=== PATIENT | female | born 1990 | race American Indian/Alaskan Native ===

== ENCOUNTER 2021-03-01 16:26 | Emergency (ER) | payer MEDICAID ==
[2021-03-01 17:33] VITALS: BP 105/68
--- NOTE | 2021-03-01 20:39 | Event Note ---
ED Screening Note Date of service: 03/01/21 Time: 20:32 ED Screening Note: Pt c/o abnormal menstrual cycle and lower abdominal pain x months left leg pain x 2 days Pt is a poor historian Recently discharged from [facility] This initial assessment/diagnostic orders/clinical plan/treatment(s) is/are subject to change based on patients health status, clinical progression and re- assessment by fellow clinical providers in the ED. Further treatment and workup at subsequent clinical providers discretion. Patient/guardian urged not to elope from the ED as their condition may be serious if not clinically assessed and managed. Initial orders include: US UA
[2021-03-02 00:58] LABS: Bilirubin,Urine NEG (Negative); Blood,Urine LG (Negative); Color,Urine Red (Yellow); RBC,Urine > 182.0 /HPF (0.0-6.0); Urobilinogen,Urine < 2.0 mg/dL (<2.0); WBC,Urine > 182.0 /HPF (0.0-6.0)
[2021-03-02 01:39] LABS: Basophils # (Auto) 0.2 K/mm3 (0.0-0.1); Basophils % (Auto) 2.3 % (0.0-1.8); Eosinophils # (Auto) 0.2 K/mm3 (0.0-0.4); Eosinophils % (Auto) 2.7 % (0.0-4.3); Hematocrit 25.9 % (30.3-42.9); Hemoglobin 7.7 gm/dl (10.1-14.3); Lymphocytes # (Auto) 2.6 K/mm3 (1.2-5.4); Mean Corpuscular HGB Conc 30 % (30-34); Monocytes # (Auto) 0.5 K/mm3 (0.0-0.8); Monocytes % (Auto) 7.6 % (0.0-7.3); Platelet Count 543 K/mm3 (140-440); Red Blood Count 4.04 M/mm3 (3.65-5.03)
[2021-03-02 01:45] LABS: Mean Corpuscular Volume 64 fl (79-97)
[2021-03-02 01:54] LABS: Alanine Aminotransferase 7 units/L (7-56); Albumin 4.7 g/dL (3.9-5); Blood Urea Nitrogen 10 mg/dL (7-17); Calcium 9.5 mg/dL (8.4-10.2); Hemolysis Index 0
[2021-03-02 02:01] LABS: BUN/Creatinine Ratio 17
--- NOTE | 2021-03-02 02:07 | Emergency Department Report ---
ED Female HPI - General Chief complaint: Urogenital-Female Stated complaint: ABD PAIN Time Seen by Provider: 03/01/21 20:32 Source: patient Mode of arrival: Ambulatory Limitations: No Limitations - History of Present Illness Initial comments: Patient is at A1 30-year-old -Turkish female with no past medical history who presents to the ED with acute onset persistent heavy vaginal bleeding and suprapubic pressure for the last 1 month. Patient states that she has previously been treated for the same heavy vaginal bleeding by her [employer] p dale with medroxyprogesterone tablets and which helped resolve the bleeding about 2 months ago after she had a miscarriage. 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 Patient denies fever, chills, dysuria, urinary frequency and urgency, dizziness, syncope, generalized weakness, nausea and vomiting, diarrhea, low back pain, chest pain or shortness of breath or headache. MD Complaint: vaginal bleeding, pelvic pain -: Sudden, month(s) (1) Location: suprapubic, other (Vaginal bleeding) Radiation: suprapubic Severity: moderate Severity scale (0 -10): 4 Quality: cramping, sharp Consistency: constant Improves with: none Worsens with: none Are you Now?: No Associated Symptoms: denies other symptoms, vaginal bleeding, abdominal pain (suprapubic pressure). denies: vaginal discharge, nausea/vomiting, f ever/chills, headaches, loss of appetite, dysuria, hematuria, rash, seizure, shortness of breath, syncope, weakness - Related Data Sexually active: Yes : 4 Para: 3 A: 1 Previous Rx's Medication Instructions Recorded Last Taken Type Ferrous Sulfate [Ferrous Sulfate 324 mg PO DAILY #60 tablet. 03/02/21 Unknown Rx 324 MG] Ibuprofen [Motrin] 600 mg PO Q8H PRN #30 tablet 03/02/21 Unknown Rx cephALEXin [Keflex] 500 mg PO Q8HR #30 cap 03/02/21 Unknown Rx medroxyPROGESTERone ACETATE 10 mg PO DAILY #10 tablet 03/02/21 Unknown Rx [Provera] Allergies Allergy/AdvReac Type Severity Reaction Status Date / Time No Known Allergies Allergy Unverified 03/01/21 17:30 ED Review of Systems ROS: Stated complaint: ABD PAIN Other details as noted in HPI Constitutional: denies: chills, fever Eyes: denies: eye pain, eye discharge, vision change ENT: denies: ear pain, throat pain Respiratory: denies: cough, shortness of breath, wheezing Cardiovascular: denies: chest pain, palpitations Endocrine: no symptoms reported Gastrointestinal: abdominal pain (Suprapubic pressure). denies: nausea, vomiting, diarrhea Genitourinary: hematuria, abnormal menses (Vaginal bleeding). denies: urgency, dysuria, discharge Musculoskeletal: denies: back pain, joint swelling, arthralgia Skin: denies: rash, lesions Neurological: denies: headache, weakness, paresthesias Psychiatric: denies: anxiety, depression Hematological/Lymphatic: denies: easy bleeding, easy bruising ED Past Medical Hx - Past Medical History Previous Medical History?: No Additional medical history: Vaginal delivery x 1 - Surgical History Past Surgical History?: No - Medications Home Medications: Home Medications Medication Instructions Recorded Confirmed Last Taken Type Ferrous Sulfate [Ferrous Sulfate 324 mg PO DAILY #60 tablet.dr 03/02/21 Unknown Rx 324 MG] Ibuprofen [Motrin] 600 mg PO Q8H PRN #30 tablet 03/02/21 Unknown Rx cephALEXin [Keflex] 500 mg PO Q8HR #30 cap 03/02/21 Unknown Rx medroxyPROGESTERone ACETATE 10 mg PO DAILY #10 tablet 03/02/21 Unknown Rx [Provera] ED Physical Exam - General Limitations: No Limitations General appearance: alert, in no apparent distress - Head Head exam: Present: atraumatic, normocephalic, normal inspection - Eye Eye exam: Present: normal appearance, PERRL, EOMI Pupils: Present: normal accommodation - ENT ENT exam: Present: normal exam, normal orophraynx, mucous membranes moist, TM's normal bilaterally, normal external ear exam - Neck Neck exam: Present: normal inspection, full ROM - Respiratory Respiratory exam: Present: normal lung sounds bilaterally. Absent: respiratory distress, wheezes, rales, rhonchi, chest wall tenderness, accessory muscle use, decreased breath sounds, prolonged expiratory - Cardiovascular Cardiovascular Exam: Present: regular rate, normal rhythm, normal heart sounds. Absent: systolic murmur, diastolic murmur, rubs, gallop - GI/Abdominal GI/Abdominal exam: Present: soft, normal bowel sounds. Absent: tenderness, guarding, rebound, hyperactive bowel sounds, hypoactive bowel sounds, organo megaly - Bi-manual exam: Present: other (Pelvic exam deferred at this time) - Extremities Exam Extremities exam: Present: normal inspection, full ROM, normal capillary refill - Back Exam Back exam: Present: normal inspection, full ROM. Absent: tenderness, CVA tenderness (R), CVA tenderness (L), muscle spasm, paraspinal tenderness, vertebral tenderness - Neurological Exam Neurological exam: Present: alert, oriented X3, CN II-XII intact, normal gait, reflexes normal - Psychiatric Psychiatric exam: Present: normal affect, normal mood - Skin Skin exam: Present: warm, dry, intact, normal color. Absent: rash ED Course Vital Signs 03/01/21 17:33 Temperature 98.4 F Pulse Rate 78 Respiratory 20 Rate Blood Pressure 105/68 [Right] O2 Sat by Pulse 100 Oximetry ED Medical Decision Making - Lab Data Result diagrams: 03/02/21 00:59 03/02/21 00:59 - Medical Decision Making This is at A1 30-year-old -Turkish female with no past medical history who presents to the ED with acute onset persistent heavy vaginal bleeding and suprapubic pressure for the last 1 month. Patient states that she has previously been treated for the same heavy vaginal bleeding by her [employer] physician with medroxyprogesterone tablets and which helped resolve the bleeding about 2 months ago after she had a miscarriage. 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 In the ED, patient is alert and oriented x3 and is not in any distress. Lab test results were reviewed and showed H&H level of 7.7 and 25.9 with MCV of 64. Urinalysis showed significant urinary tract infection with heavy bleeding. The rest of the lab test results are nonactionable. Based on the history and physical exam findings, the patient was discharged home on a prescription of medroxyprogesterone tablet to be taken daily for 10 days, iron tablets and antibiotic for urinary tract infection. Patient was however advised to return to the ED immediately if her symptoms get worse, or otherwise follow- up with her [employer] physician in 7 to 10 days for reevaluation. - Differential Diagnosis ; UTI; Ovarian cyst; DUB; Kidney stones Critical care attestation.: If time is entered above; I have spent that time in minutes in the direct care of this critically ill patient, excluding procedure time. ED Disposition Clinical Impression: Dysfunctional uterine hemorrhage, Acute urinary tract infection, Iron deficiency anemia due to chronic blood loss Disposition: TO HOME OR SELFCARE Is pt being admited?: No Does the pt Need Aspirin: No Condition: Stable Instructions: Preventing Iron Deficiency Anemia, Adult, Metrorrhagia, Eas y-to-Read, Urinary Tract Infection, Adult, [id number], Abnormal Uterine Bleeding, [id number] Additional Instructions: All lab test results were reviewed and showed signs of iron deficiency anemia based on blood loss from frequent vaginal bleeding. The lab test results also showed some mild urinary tract infection. Therefore take medications with food, drink plenty of fluids and follow-up with your [employer] physician or primary care physician in 7 to 10 days for reevaluation or return to the ED immediately if symptoms get worse. Prescriptions: Ferrous Sulfate [Ferrous Sulfate 324 MG] 324 mg PO DAILY #60 tablet. cephALEXin [Keflex] 500 mg PO Q8HR #30 cap Ibuprofen [Motrin] 600 mg PO Q8H PRN #30 tablet PRN Reason: Pain medroxyPROGESTERone ACETATE [Provera] 10 mg PO DAILY #10 tablet Referrals: [facility] [Provider Group] - 7-10 days Time of Disposition: 02:10 Print Language: PERSIAN
== END 2021-03-02 03:09 | disposition home or self-care (01) ==
LOC: ED 16:26
DX: N39.0 Urinary tract infection, site not specified (principal); N93.8 Other specified abnormal uterine and vaginal bleeding; D64.89 Other specified anemias; Z98.890 Other specified postprocedural states; Z79.1 Long term (current) use of non-steroidal anti-inflammatories (NSAID); Z79.899 Other long term (current) drug therapy
CPT/HCPCS: 36415; 80053; 81001; 84703; 85025